=== PATIENT | female | born 1995 | race Caucasian/White ===

== ENCOUNTER 2017-10-19 10:31 | Inpatient (IN) | payer OTHER ==
--- NOTE | 2017-10-19 11:04 | ED ---
Psychiatric Complaint - HPI Summary HPI Summary: This is scribe Ed Cecilia documenting for attending Dr. Tyrel Medina. 21 y/o female presents to the ED c/o depressed and SI thoughts, for around 7 months. Pt states she "wants to sleep and never wake up". Associated sx: decreased appetite, increased sleep. Sent from [facility] after being seen by cleaning machine operator today, originally referred by PCP. Pt had a "bad night" several nights ago. Previous suicidal attempts. Pt started Zoloft in November. PCP Lorraine Steen ([place]). I, Dr. Medina, personally performed the services described in this documentation as scribed in my presence and it is both accurate and complete. - History Of Current Complaint Chief Complaint: EDMentalHealth Time Seen by Provider: 10/19/17 10:59 Hx Obtained From: Patient Hx Last Menstrual Period: 01/26/13 Onset/Duration: Lasting Weeks Timing: Constant Character: Depressed Aggravating Factor(s): Nothing Alleviating Factor(s): Nothing Associated Signs And Symptoms: Positive: Sleep Disturbance - "sleeps more", Appetite Change - Allergies/Home Medications Allergies/Adverse Reactions: Allergies Allergy/AdvReac Type Severity Reaction Status Date / Time No Known Allergies Allergy Verified 10/19/17 10:57 Home Medications: Home Medications Sertraline* [Zoloft*] 100 mg PO DAILY 10/19/17 [History Confirmed 10/19/17] PMH/Surg Hx/FS Hx/Imm Hx Previously Healthy: No Cardiovascular History: Denies: Hx Congestive Heart Failure Opthamlomology History: Denies: Hx Legally Blind Infectious Disease History: No Infectious Disease History: Denies: Traveled Outside the [place] in Last 30 Days - Family History Known Family History: Positive: Unknown - Social History Occupation: Employed Full-time Hx Substance Use: No Substance Use Type: Reports: None Review of Systems Constitutional: Negative Eyes: Negative ENT: Negative Cardiovascular: Negative Respiratory: Negative Gastrointestinal: Negative Genitourinary: Negative Musculoskeletal: Negative Skin: Negative Neurological: Negative Positive: Depressed, Other - "sleeps more", decreased appetite All Other Systems Reviewed And Are Negative: Yes Physical Exam - Summary Physical Exam Summary: Appearance: The patient is well-nourished in no acute distress and in no acute pain. Skin: The skin is warm and dry and skin color reflects adequate perfusion. HEENT: The head is normocephalic and atraumatic. The pupils are equal and reactive. The conjunctivae are clear and without drainage. Nares are patent and without drainage. Mouth reveals moist mucous membranes and the throat is without erythema and exudate. The external ears are intact. The ear canals are patent and without drainage. The tympanic membranes are intact. Neck: The neck is supple with full range of motion and non-tender. There are no carotid bruits. There is no neck vein distension. Respiratory: Chest is non-tender. Lungs are clear to auscultation and breath sounds are symmetrical and equal. Cardiovascular: Heart is regular rate and rhythm. There is no murmur or rub auscultated. There is no peripheral edema and pulses are symmetrical and equal. Abdomen: The abdomen is soft and non-tender. There are normal bowel sounds heard in all four quadrants and there is no organomegaly palpated. Musculoskeletal: There is no back tenderness noted. Extremities are non-tender with full range of motion. There is good capillary refill. There is no peripheral edema or calf tenderness elicited. Neurological: Patient is alert and oriented to person, place and time. The patient has symmetrical motor strength in all four extremities. Cranial nerves are grossly intact. Deep tendon reflexes are symmetrical and equal in all four extremities. Psychiatric: The patient has an appropriate affect and does not exhibit any anxiety or depression. Triage Information Reviewed: Yes Vital Signs On Initial Exam: Initial Vitals Temp Pulse Resp BP Pulse Ox 98.8 F 60 16 121/70 100 10/19/17 10:53 10/19/17 10:53 10/19/17 10:53 10/19/17 10:53 10/19/17 10:53 Vital Signs Reviewed: Yes Diagnostics - Vital Signs Vital Signs Temp Pulse Resp BP Pulse Ox 10/19/17 10:53 98.8 F 60 16 121/70 100 - Laboratory Result Diagrams: 10/19/17 11:22 10/19/17 11:22 Lab Statement: Any lab studies that have been ordered have been reviewed, and results considered in the medical decision making process. Course/Dx - Course Course Of Treatment: Ms. Parker presents with good history of depression with suicidal ideation and no plan. She was sent over from her mental health clinic. She was medically cleared and went to the flex unit where she went through a mental health eval. They offered her voluntary admission and she accepted. - Differential Dx/Clinical Impression Provider Diagnosis: Depression Discharge - Sign-Out/Discharge Documenting (check all that apply): Patient Departure - Discharge Plan Condition: Stable Disposition: ADMITTED TO [facility] Referrals: Lorraine Steen [Primary Care Provider] - - Billing Disposition and Condition Condition: STABLE Disposition: Admitted to [facility]
[2017-10-19 11:29] LABS: Urine Appearance Cloudy; Urine Blood Negative (Negative); Urine Color Yellow; Urine Ketones Negative (Negative); Urine Protein Negative (Negative); Urine Urobilinogen Negative (Negative)
[2017-10-19 11:33] LABS: ABS Basophils 0.1 10^3/ul (0-0.2); ABS Eosinophils 0.3 10^3/ul (0-0.6); ABS Lymphocytes 1.9 10^3/ul (1.0-4.8); ABS Monocytes 0.7 10^3/ul (0-0.8); ABS Neutrophils 5.9 10^3/ul (1.5-7.7); ABS Nucleated RBC 0 10^3/ul; Eosinophil % 3.2 % (0-6); Hematocrit 38 % (35-47); Hemoglobin 12.9 g/dl (12.0-16.0); Lymphocyte % 21.3 % (25-47); Mean Corpuscular HGB Conc 34 g/dl (31-36); Mean Corpuscular Hemoglobin 31 pg (27-31); Mean Corpuscular Volume 91 fL (80-97); Nucleated Red Blood Cells % 0; Platelet Count 211 10^3/ul (150-450); Red Blood Count 4.16 10^6/ul (4.00-5.40); Red Cell Distribution Width 14 % (10.5-15); White Blood Count 8.8 10^3/ul (3.5-10.8)
[2017-10-19 11:57] LABS: EGFR Non-African American 117.4 (>60)
[2017-10-19] MEDS ORDERED: Al Hydrox/Mg Hydrox/Simet LIQ* 30 ML UDC PO PRN (14:26)
[2017-10-19] MEDS ORDERED: Acetaminophen TAB* 325 MG PO PRN (14:26)
[2017-10-20] MEDS: Sertraline* 100 MG TAB PO SCH (11:02)
--- NOTE | 2017-10-20 15:29 | HP ---
H&P (Free Text) History and Physical: JUSTIFICATION FOR ADMISSION: Patient presented to emergency room with suicidal ideation and plan, worsening depression and anxiety. She requires inpatient psychiatric admission in order to provide treatment and stabilization as she is a danger to herself. CHIEF COMPLAINT: "I wanted to sleep and switch off HISTORY OF THE PRESENT ILLNESS: Patient is a 21 y/o female, single, living with her family, employed at a bar, with history of eating disorder unspecified, depression and anxiety. Patient was admitted to inpatient unit for worsening of her depression and suicidal ideation with plan to take something and never wake up. Patient has been compliant with her Zoloft 100 mg a day but reported that she has not noticed improvement in her depression and anxiety. Patient reportedly has been receiving Zoloft from her primary care. Patient has also been smoking cannabis daily and reportedly smokes about 5 grams in a week throughout the day to calm her anxiety and racing thoughts. Patient reports hypomanic symptoms of elevated mood, increase goal directed activity, increase level of energy, decrease need for sleep, listening and singing to loud music but has been using cannabis daily. Patient reports being in that mood for couple of day and then switches to depression where she lose interest in things, is low in energy, unable to get herself out of bed and do things, feelings of helpless and passive suicidal thoughts. Patient reportedly was getting overwhelmed with her fluctuating moods and anxiety around obsessive compulsive personality traits, working 2 jobs, taking care of house chores for her and others in the house. Patient reports no psychotic symptoms of delusions and hallucinations. Patient denied any suicidal or homicidal ideation on the unit. Patient continued to exhibit behavior that was in control and no self-injurious behavior noted and feels safe in the hospital. Patient reports restricting her diet in order to maintain her weight and her appearance. Patient was involved in purging behavior in the past but has not engaged in any recently and instead has restricted her to vegetarian diet for last 6 months. PAST PSYCHIATRIC HISTORY: Patient has no history of inpatient psychiatric hospitalization. Patient has history of outpatient psychiatric treatment with a therapist that started a week ago. Patient was otherwise receiving Zoloft from her primary care which was increased from 50mg to 100 mg but reported no difference. Patient reported daily use of Cannabis. Patient has been in no inpatient or outpatient drug treatment. Patient has history of suicidal thoughts but no attempt or plan. Patient has history of no homicidal threats, no intent or attempt. Patient reports no history of aggressive and agitated behavior when decompensates. Patient has access to firearm at home. Patient has history of obsessive compulsive personality traits. No psychotic symptoms reported. SUBSTANCE ABUSE HISTORY: Patient uses cannabis daily throughout the day at different interval and to help her with sleep. Urine toxicology was positive for cannabis. Patient has been in no inpatient and outpatient treatment for drugs. PAST MEDICAL HISTORY: No active medical problems ALLERGIES: NKA but [place] FAMILY PSYCHIATRIC HISTORY: Patient has family history of alcohol abuse in her father. Patient has history of depression and anxiety in her mother as per patient. Patient reported that her grandfather of suicide in the family. FAMILY/PSYCHOSOCIAL HISTORY: Patient currently lives with her family but feels close to her mother. Patient reported limited involvement of her mother growing up. Patient is not and not currently in any relationship but has been in communication with her ex- boyfriend. Patient has no children. Patient is currently enrolled at [employer] studying criminal justice and wants to pursue career in substance/alcohol abuse counseling. Patient support system includes her family and friends. Patient reports that she is not happy with her brother as she has to do everything for them and that overwhelms her like her mother do things for her father. REVIEW OF SYSTEMS: Patients review of symptoms was negative for any physical complaint. Vitals are stable, labs were in normal limits. Patients ED physical exam was reviewed which is grossly normal with no active medical problem. Appearance: The patient is well-nourished in no acute distress and in no acute pain. Skin: The skin is warm and dry and skin color reflects adequate perfusion. HEENT: The head is normocephalic and atraumatic. The pupils are equal and reactive. The conjunctivae are clear and without drainage. Nares are patent and without drainage. Mouth reveals moist mucous membranes and the throat is without erythema and exudate. The external ears are intact. The ear canals are patent and without drainage. The tympanic membranes are intact. Neck: The neck is supple with full range of motion and non-tender. There are no carotid bruits. There is no neck vein distension. Respiratory: Chest is non-tender. Lungs are clear to auscultation and breath sounds are symmetrical and equal. Cardiovascular: Heart is regular rate and rhythm. There is no murmur or rub auscultated. There is no peripheral edema and pulses are symmetrical and equal. Abdomen: The abdomen is soft and non-tender. There are normal bowel sounds heard in all four quadrants and there is no organomegaly palpated. Musculoskeletal: There is no back tenderness noted. Extremities are non-tender with full range of motion. There is good capillary refill. There is no peripheral edema or calf tenderness elicited. Neurological: Patient is alert and oriented to person, place and time. The patient has symmetrical motor strength in all four extremities. Cranial nerves are grossly intact. Deep tendon reflexes are symmetrical and equal in all four extremities. MENTAL STATUS EXAMINATION: Appearance: casually dressed, making fair eye contact, slim, appear stated age, fair hygiene and grooming. Behavior: cooperative Gait: normal Abnormal motor activity: none Speech: normal rate and rhythm, normal tone and volume Mood: I have been depressed Affect: dysphoric with intermittent periods of crying when discussing about depression Thought process: coherent to circumstantial at times Thought Content: Suicidal/Homicidal ideation: denied at this time Delusions: none Obsessions: patient reports obsession with work, chores and being in time Phobia: none Perceptual disturbance: none Attention: fair Orientation: grossly intact Concentration: fair Memory: fair Insight: fair Judgment: fair Impulse control: fair IMPRESSION: Patient with history of depression, anxiety, cannabis use, ocpd traits, and periods of hypomanic like symptoms. Patient recently started her treatment with a therapist but has been treated by her primary care with Zoloft. Patient currently admitted due to worsening of depression and suicidal thoughts with a plan. Patient has also struggled with interpersonal relationship with her friends and family. Patient is a danger to self if discharged hence will be stabilized on inpatient unit with medication adjustments and therapy. DIAGNOSES: Major Depression, recurrent, Anxiety Disorder unspecified, OCPD traits Prov: Bipolar Disorder PLAN: Admit to [facility] on Q 15 min observation. Patient is full code. Patient is on voluntary admission status Integrate patient into the milieu Individual and group psychotherapy MMPI and psychological consult with Dr. Fragoso. Social work consult for therapy and discharge planning Will hold family meeting with parents to increase Data base. Patient gave informed consent to start the following medications: Patient was continued with Zoloft 100mg a day. Patient was started on Seroquel 50 mg HS as needed for sleep with plan to be as scheduled medication. to augment antidepressant and anti-anxiety effect. As patient wants to have the control and was concerned about it due to weight gain. Will continue to monitor and f/u for improvement and side effects. Helio Diaz MD Attending Psychiatrist
[2017-10-20] MEDS: QUEtiapine TAB* 25 MG PO PRN (20:25)
[2017-10-21] MEDS: Sertraline* 100 MG TAB PO SCH (09:07)
--- NOTE | 2017-10-21 19:50 | PN ---
Subjective - Subjective Date of Service: 10/21/17 Service Type: [id number] Hosp care 15 min low complexity Subjective: Hina reports that she was feeling a lot better with better mood, less anxiety, good sleep at night and feeling positive about her future. Denies SI, HI, hallucinations or delusions. Says groups are helpful for her to understand her mental illness and substance abuse. Didn't have any cravings for marijuana. Objective - Appearance Appearance: Healthy Appearing, Thin Framed Dysmorphic Features: No Hygiene: Normal Grooming: Well Kept - Behavior Psychomotor Activities: Normal Exhibits Abnormal Movement: No - Attitude and Relatedness Attitude and Relatedness: Appropriate Eye Contact: Good - Speech Quality: Unpressured Latencies: Normal Quantity: Appropriate - Mood Patient's Decription of Mood: "Okay" - Affect Observed Affect: Constricted Affect Consistent with: Dysphoria - Thought Process Patient's Thought Process: Coherent, Goal Directed Thought Content: No Passive Wish, No Suicidal Planning, No Homicidal Ideation, No Paranoid Ideation - Sensorium Experiencing Hallucinations: No, Sensorium is Clear Type of Hallucinations: Visual: No, Auditory: No, Command: No - Level of Consciousness Level of Consciousness: Alert Orientation: Yes Intact, Yes Orientated to Time, Yes Orientated to Place, Yes Orientated to Person - Impulse Control Impulse Control: Intact - Insight and Judgement Insight and Judgement: Fair - Group Participation Particating in Group Activities: Yes - Medication Management Medication Management Adherence: Yes Assessment - Assessment Merits Inpatient Hospitalization: For Immediate Safety, For Stabilization, For Discharge Planning Clinical Impression: Mood symptoms appears to have responded to current treatments but she will need more time on the unit for further improvement. Plan - Plan Treatment Plan: Name: HINA CRAMER Birthdate: 1995 [id number] Continued Medication Management: Continue Outpt Medication Medications: Current Medications Acetaminophen (Tylenol Tab*) 650 mg PO Q4H PRN PRN Reason: for pain; or Temp >101 F Al Hydrox/Mg Hydrox/Simethicone (Maalox Plus*) 30 ml PO Q4H PRN PRN Reason: INDIGESTION Quetiapine Fumarate (Seroquel Tab*) 50 mg PO BEDTIME PRN PRN Reason: anxiety/sleep Last Admin: 10/20/17 20:25 Dose: 50 mg Sertraline HCl (Zoloft*) 100 mg PO DAILY [facility] Last Admin: 10/21/17 09:07 Dose: 100 mg - Discharge Plan Discharge Plan: Outpatient Follow Up Outpatient Program: [facility]
[2017-10-21] MEDS: QUEtiapine TAB* 25 MG PO PRN (20:11)
[2017-10-22] MEDS: Sertraline* 100 MG TAB PO SCH (08:10)
[2017-10-22] MEDS ORDERED: Sodium Phosphate ADULT ENEMA* 118 ml bottle PR ONE (17:00)
[2017-10-22] MEDS: QUEtiapine TAB* 25 MG PO PRN (20:33)
[2017-10-23 08:11] VITALS: BP 99/72
[2017-10-23] MEDS: Sertraline* 100 MG TAB PO SCH (08:41)
--- NOTE | 2017-10-23 11:47 | PN ---
[facility]: Group Therapy Note - Service Type Service Type: [id number] Group Psychotherapy - Cognitive Behavioral Group Therapy ( CBT):Patient was attentive and participatory in CBT programming this morning, and remained in good behavioral control. Patient expressed positive insights regarding relevant treatment interventions and goals.
--- NOTE | 2017-10-23 12:05 | DS ---
Subjective - Subjective Service Types: [id number] [facility] Day Mgmt simple under 30 min Discharge Date: 10/23/17 Subjective: JUSTIFICATION FOR ADMISSION: Patient presented to emergency room with suicidal ideation and plan, worsening depression and anxiety. She requires inpatient psychiatric admission in order to provide treatment and stabilization as she is a danger to herself. CHIEF COMPLAINT: "I wanted to sleep and switch off HISTORY OF THE PRESENT ILLNESS: Patient is a 21 y/o female, single, living with her family, employed at a bar, with history of eating disorder unspecified, depression and anxiety. Patient was admitted to inpatient unit for worsening of her depression and suicidal ideation with plan to take something and never wake up. Patient has been compliant with her Zoloft 100 mg a day but reported that she has not noticed improvement in her depression and anxiety. Patient reportedly has been receiving Zoloft from her primary care. Patient has also been smoking cannabis daily and reportedly smokes about 5 grams in a week throughout the day to calm her anxiety and racing thoughts. Patient reports hypomanic symptoms of elevated mood, increase goal directed activity, increase level of energy, decrease need for sleep, listening and singing to loud music but has been using cannabis daily. Patient reports being in that mood for couple of day and then switches to depression where she lose interest in things, is low in energy, unable to get herself out of bed and do things, feelings of helpless and passive suicidal thoughts. Patient reportedly was getting overwhelmed with her fluctuating moods and anxiety around obsessive compulsive personality traits, working 2 jobs, taking care of house chores for her and others in the house. Patient reports no psychotic symptoms of delusions and hallucinations. Patient denied any suicidal or homicidal ideation on the unit. Patient continued to exhibit behavior that was in control and no self-injurious behavior noted and feels safe in the hospital. Patient reports restricting her diet in order to maintain her weight and her appearance. Patient was involved in purging behavior in the past but has not engaged in any recently and instead has restricted her to vegetarian diet for last 6 months. PAST PSYCHIATRIC HISTORY: Patient has no history of inpatient psychiatric hospitalization. Patient has history of outpatient psychiatric treatment with a therapist that started a week ago. Patient was otherwise receiving Zoloft from her primary care which was increased from 50mg to 100 mg but reported no difference. Patient reported daily use of Cannabis. Patient has been in no inpatient or outpatient drug treatment. Patient has history of suicidal thoughts but no attempt or plan. Patient has history of no homicidal threats, no intent or attempt. Patient reports no history of aggressive and agitated behavior when decompensates. Patient has access to firearm at home. Patient has history of obsessive compulsive personality traits. No psychotic symptoms reported. SUBSTANCE ABUSE HISTORY: Patient uses cannabis daily throughout the day at different interval and to help her with sleep. Urine toxicology was positive for cannabis. Patient has been in no inpatient and outpatient treatment for drugs. PAST MEDICAL HISTORY: No active medical problems ALLERGIES: NKA but [place] FAMILY PSYCHIATRIC HISTORY: Patient has family history of alcohol abuse in her father. Patient has history of depression and anxiety in her mother as per patient. Patient reported that her grandfather of suicide in the family. FAMILY/PSYCHOSOCIAL HISTORY: Patient currently lives with her family but feels close to her mother. Patient reported limited involvement of her mother growing up. Patient is not and not currently in any relationship but has been in communication with her ex- boyfriend. Patient has no children. Patient is currently enrolled at [employer] studying criminal justice and wants to pursue career in substance/alcohol abuse counseling. Patient support system includes her family and friends. Patient reports that she is not happy with her brother as she has to do everything for them and that overwhelms her like her mother do things for her father. REVIEW OF SYSTEMS: Patients review of symptoms was negative for any physical complaint. Vitals are stable, labs were in normal limits. Patients ED physical exam was reviewed which is grossly normal with no active medical problem. Appearance: The patient is well-nourished in no acute distress and in no acute pain. Skin: The skin is warm and dry and skin color reflects adequate perfusion. HEENT: The head is normocephalic and atraumatic. The pupils are equal and reactive. The conjunctivae are clear and without drainage. Nares are patent and without drainage. Mouth reveals moist mucous membranes and the throat is without erythema and exudate. The external ears are intact. The ear canals are patent and without drainage. The tympanic membranes are intact. Neck: The neck is supple with full range of motion and non-tender. There are no carotid bruits. There is no neck vein distension. Respiratory: Chest is non-tender. Lungs are clear to auscultation and breath sounds are symmetrical and equal. Cardiovascular: Heart is regular rate and rhythm. There is no murmur or rub auscultated. There is no peripheral edema and pulses are symmetrical and equal. Abdomen: The abdomen is soft and non-tender. There are normal bowel sounds heard in all four quadrants and there is no organomegaly palpated. Musculoskeletal: There is no back tenderness noted. Extremities are non-tender with full range of motion. There is good capillary refill. There is no peripheral edema or calf tenderness elicited. Neurological: Patient is alert and oriented to person, place and time. The patient has symmetrical motor strength in all four extremities. Cranial nerves are grossly intact. Deep tendon reflexes are symmetrical and equal in all four extremities. MENTAL STATUS EXAMINATION ON ADMISSION: Appearance: casually dressed, making fair eye contact, slim, appear stated age, fair hygiene and grooming. Behavior: cooperative Gait: normal Abnormal motor activity: none Speech: normal rate and rhythm, normal tone and volume Mood: I have been depressed Affect: dysphoric with intermittent periods of crying when discussing about depression Thought process: coherent to circumstantial at times Thought Content: Suicidal/Homicidal ideation: denied at this time Delusions: none Obsessions: patient reports obsession with work, chores and being in time Phobia: none Perceptual disturbance: none Attention: fair Orientation: grossly intact Concentration: fair Memory: fair Insight: fair Judgment: fair Impulse control: fair Objective - Appearance Appearance: Healthy Appearing, Thin Framed Dysmorphic Features: No Hygiene: Normal Grooming: Fairly Well Kept - Behavior Psychomotor Activities: Normal Exhibits Abnormal Movement: No - Attitude and Relatedness Attitude and Relatedness: Cooperative Eye Contact: Fair - Speech Quality: Unpressured Latencies: Normal Quantity: Appropriate - Mood Patient's Decription of Mood: "Good" - Affect Observed Affect: Good Affect Consistent with: Euthymia - Thought Process Patient's Thought Process: Coherent Thought Content: No Passive Wish, No Suicidal Planning, No Homicidal Ideation, No Paranoid Ideation - Sensorium Experiencing Hallucinations: No, Sensorium is Clear Type of Hallucinations: Visual: No, Auditory: No, Command: No - Level of Consciousness Level of Consciousness: Alert Orientation: Yes Intact, Yes Orientated to Time, Yes Orientated to Place, Yes Orientated to Person - Impulse Control Impulse Control: Intact - Insight and Judgement Insight and Judgement: Fair - Group Participation Particating in Group Activities: Yes - Medication Management Medication Management Adherence: Yes Treatment Course & Assessment Clinical Course & Impression: Patient with history of depression, anxiety, cannabis use, ocpd traits, and periods of hypomanic like symptoms. Patient recently started her treatment with a therapist but has been treated by her primary care with Zoloft. Patient has been abusing cannabis daily with limited to no response from Zoloft. Patient currently admitted due to worsening of depression and suicidal thoughts with a plan. Patient has also struggled with interpersonal relationship with her friends and family. Patient was a danger to self if discharged hence was stabilized on inpatient unit with medication adjustments and therapy. Patient admitted to [facility] on Q 15 min observation. Patient was on voluntary admission status. Patient integrated into the milieu quickly. Patient participated in therapy. After informed consent about medication, patient was continued with Zoloft 100mg a day. Patient was started on Seroquel 50 mg HS as needed for sleep with plan to be as scheduled medication. to augment antidepressant and anti-anxiety effect. As patient wants to have the control over her situation and weight gain being a major concern. Patient was hesitant to begin with taking it but did take it and felt better, was able to sleep fine at bedtime. Patient was counseled about marijuana abuse. Aptient reproted no craving in the hospital and stated that she will be working with her friend doing mindfulness exercise including yoga, and outdoor activities as her coping strategies to manage stress and avoid any marijuana use on her own. Patient was compliant with treatment, abstinent from marijuana use. Patient was feeling a lot better with better mood, less anxiety, good sleep at night and feeling positive about her future. Patient was able to meet friend and family during the weekend. Patient was able to learn skills to manage and cope related to her perfectionism around her environment at home and work which was overwhelming her. Patient felt better after communicating her feelings with her mother about her responsibilities at home towards others and forgetting her self and needs. Patient was eating appropriately and sleeping fine. Patient was doing better, mood was table, had plans set up for her self, wanted to be discharged today and f/u outpatient with therapist and psychiatrist. Patient was not a danger to self and other, caring for herself. Patient was not depressed, denied si/hi, no psychotic symptoms of delusions and hallucinations. Patient was counseled again about cannabis abuse and reports that she will be able to stay abstinent and by herself and with help of her friend. But patient will work with therapist to help her refer to a substance abuse treatment if patient is having struggle staying abstinent or have relapse in cravings. Patient was offered voluntary stay but did not want to and did not meet criteria for involuntary hospitalization. Patient was discussed with team and discharged with plan to follow outpatient. Patient was discharged on Zoloft 100 mg Daily and Seroquel 50 mg at Bedtime. Merits Inpatient Hospitalization: No Clear for Discharge: Adequate Clinical Respons, Acceptable Safety Profile Inpatient DSM-V Dx: F33.9 Discharge Planning - Discharge Planning Discharge Plan: Outpatient Follow Up Recommendations for Continuing Care: Medication Management, Psychotherapy, Substance Abuse Counseling Medications: Discharge Medications Quetiapine Fumarate (Seroquel Tab*) 50 mg PO BEDTIME Last Admin: 10/22/17 20:33 Dose: 50 mg Sertraline HCl (Zoloft*) 100 mg PO DAILY BEATRIZ Last Admin: 10/23/17 08:41 Dose: 100 mg Patient given 30 day supply Discharge Planning: Prescriptions provided for discharge [x] Yes [] No Follow up care details as per social work arrangements. Patient response to discharge plan: [x] eager for discharge [] agreeable with discharge plan [] ambivalent about discharge [] disagrees with discharge today
== END 2017-10-23 12:45 | disposition home or self-care (01) | DRG 885 ==
LOC: ED 10:31 → BSU 14:27
PROVIDERS: ADMIT Psychiatry & Neurology Psychiatry; ATTEND Psychiatry & Neurology Psychiatry
DX: F33.9 Major depressive disorder, recurrent, unspecified (principal); R45.851 Suicidal ideations; F41.9 Anxiety disorder, unspecified; F12.10 Cannabis abuse, uncomplicated; Z91.018 Allergy to other foods; Z81.1 Family history of alcohol abuse and dependence; Z81.8 Family history of other mental and behavioral disorders
CPT/HCPCS: 36415; 80053; 80061; 80307; 80320; 80329; 81003; 83036; 84443; 84702; 85025; 90853; 99222; 99231; 99238; 99285; A9270-GY; G0480

== ENCOUNTER 2020-04-04 17:10 | Inpatient (IN) ==
[2020-04-04 17:41] LABS: Urine Appearance Turbid; Urine Bilirubin Negative (Negative); Urine Blood Negative (Negative); Urine Color Amber; Urine Glucose Negative (Negative); Urine Ketones Negative (Negative); Urine Nitrite Negative (Negative); Urine Protein Negative (Negative); Urine Specific Gravity 1.014 (1.010-1.030); Urine Urobilinogen Negative (Negative)
[2020-04-04 17:49] LABS: ABS Basophils 0.1 10^3/ul (0-0.2); ABS Eosinophils 0.2 10^3/ul (0-0.6); ABS Lymphocytes 2.6 10^3/ul (1.0-4.8); ABS Monocytes 0.7 10^3/ul (0-0.8); ABS Neutrophils 4.5 10^3/ul (1.5-7.7); Hematocrit 40 % (35-47); Hemoglobin 13.6 g/dL (12.0-16.0); Lymphocyte % 32.3 %; Mean Corpuscular HGB Conc 34 g/dL (31-36); Mean Corpuscular Hemoglobin 31 pg (27-31); Mean Corpuscular Volume 91 fL (80-97); Mean Platelet Volume 9.4 fL (7.4-10.4); Platelet Count 201 10^3/uL (150-450); Red Blood Count 4.39 10^6 /uL (3.70-4.87); Red Cell Distribution Width 14 % (10-15)
[2020-04-04 18:05] LABS: ALT 13 U/L (7-52); AST 19 U/L (13-39); Albumin 4.8 g/dL (3.2-5.2); Albumin/Globulin Ratio 1.8 (1-3); Alkaline Phosphatase 59 U/L (34-104); Anion Gap 6 mmol/L (2-11); Blood Urea Nitrogen 8 mg/dL (6-24); CO2 Carbon Dioxide 30 mmol/L (22-32); Calcium 9.4 mg/dL (8.6-10.3); Chloride 103 mmol/L (101-111); EGFR African American 108.5 (>60); EGFR Non-African American 89.7 (>60); Globulin 2.6 g/dL (2-4); Glucose 68 mg/dL (70-100); Potassium 3.1 mmol/L (3.5-5.0); Sodium 139 mmol/L (135-145); Total Protein 7.4 g/dL (6.4-8.9)
[2020-04-04 18:05] LABS: Urine Benzodiazepine Screen None Detected (None Detect); Urine Cannabinoids Screen Presumptive Positive (None Detect); Urine Opiates Screen None Detected (None Detect)
[2020-04-04 18:08] LABS: Acetaminophen < 15 mcg/mL; Alcohol, S < 10 mg/dL (<10); Salicylate < 2.50 mg/dL (<30)
[2020-04-04 18:23] LABS: TSH Ultra Thyroid Stim Horm 2.88 mcIU/mL (0.34-5.60)
[2020-04-04] MEDS ORDERED: Al Hydrox/Mg Hydrox/Simet LIQ 30 ML UDC PO PRN (19:41)
[2020-04-04] MEDS: Nicotine GUM 2MG FRUIT FLAVOR PO PRN (22:34)
[2020-04-05] MEDS: Vitamin THERAPEUTIC TAB PO SCH (09:00)
[2020-04-05] MEDS: Nicotine PATCH 14 MG/24 HR PATCH TRANSDERM SCH (09:00)
[2020-04-05] MEDS: CMC:Desvenlafaxine 50 mg TAB (NF) PO SCH (09:00)
[2020-04-05] MEDS: Amphetamine MIXED SALT 10mgTAB PO SCH (09:01)
[2020-04-06] MEDS: CMC:Desvenlafaxine 50 mg TAB (NF) PO SCH (08:43)
[2020-04-06] MEDS: Amphetamine MIXED SALT 10mgTAB PO SCH (08:43)
[2020-04-06] MEDS: Vitamin THERAPEUTIC TAB PO SCH (08:44)
[2020-04-06] MEDS: Nicotine PATCH 14 MG/24 HR PATCH TRANSDERM SCH (08:44)
[2020-04-06 09:01] LABS: HDL Cholesterol 58.7 mg/dL
[2020-04-06] MEDS ORDERED: Amphetamine MIXED SALT 10mgTAB PO ONE (12:00)
[2020-04-06] MEDS: Nicotine GUM 2MG FRUIT FLAVOR PO PRN ×3 (12:31→21:10)
[2020-04-07] MEDS: Nicotine PATCH 21 MG/24 HR PATCH TRANSDERM SCH (08:39)
[2020-04-07] MEDS: Amphetamine MIXED SALT 10mgTAB PO SCH ×2 (08:40→16:41)
[2020-04-07] MEDS: Vitamin THERAPEUTIC TAB PO SCH (08:40)
[2020-04-07] MEDS: CMC:Desvenlafaxine 50 mg TAB (NF) PO SCH (08:40)
[2020-04-07] MEDS: Lithium Carbonate ER 450mg TAB PO SCH (08:40)
[2020-04-07] MEDS ORDERED: DESVENLAFAXINE 25 MG PO SCH ×2 (09:00)
[2020-04-07] MEDS ORDERED: ATOMOXETINE 40 MG PO SCH (09:00)
[2020-04-07] MEDS: Nicotine GUM 2MG FRUIT FLAVOR PO PRN ×4 (09:14→21:07)
[2020-04-08] MEDS: Nicotine PATCH 21 MG/24 HR PATCH TRANSDERM SCH (08:30)
[2020-04-08] MEDS: Vitamin THERAPEUTIC TAB PO SCH (08:31)
[2020-04-08] MEDS: Lithium Carbonate ER 450mg TAB PO SCH (08:31)
[2020-04-08] MEDS: Amphetamine MIXED SALT 10mgTAB PO SCH ×2 (08:31→16:13)
[2020-04-08] MEDS: CMC:Desvenlafaxine 50 mg TAB (NF) PO SCH (08:32)
[2020-04-08] MEDS: Nicotine GUM 2MG FRUIT FLAVOR PO PRN ×3 (09:50→20:08)
[2020-04-09] MEDS: Amphetamine MIXED SALT 10mgTAB PO SCH ×2 (08:23→15:13)
[2020-04-09] MEDS: Vitamin THERAPEUTIC TAB PO SCH (08:24)
[2020-04-09] MEDS: Nicotine PATCH 21 MG/24 HR PATCH TRANSDERM SCH (08:25)
[2020-04-09] MEDS: CMC:Desvenlafaxine 50 mg TAB (NF) PO SCH (08:25)
[2020-04-09] MEDS: Lithium Carbonate ER 450mg TAB PO SCH (08:58)
[2020-04-09] MEDS: Nicotine GUM 2MG FRUIT FLAVOR PO PRN ×3 (08:58→20:02)
[2020-04-10] MEDS: Nicotine PATCH 21 MG/24 HR PATCH TRANSDERM SCH (08:23)
[2020-04-10] MEDS: Vitamin THERAPEUTIC TAB PO SCH (08:24)
[2020-04-10] MEDS: Lithium Carbonate ER 450mg TAB PO SCH (08:24)
[2020-04-10] MEDS: Amphetamine MIXED SALT 10mgTAB PO SCH (08:24)
[2020-04-10] MEDS: CMC:Desvenlafaxine 50 mg TAB (NF) PO SCH (08:25)
[2020-04-10] MEDS: Nicotine GUM 2MG FRUIT FLAVOR PO PRN (08:26)
[2020-04-10 09:00] VITALS: BP 116/69
== END 2020-04-10 14:10 | disposition home or self-care (01) | DRG 885 ==
LOC: ED 17:10 → BSU 19:10
PROVIDERS: ADMIT Psychiatry & Neurology Psychiatry; ATTEND Psychiatry & Neurology Psychiatry